=== PATIENT | female | born 1945 ===

== ENCOUNTER 2018-10-21 13:37 | Inpatient (IN) | payer MEDICARE ==
[2018-10-21] VITALS (10 sets, daily range): BP systolic 86–126; BP diastolic 49–76; PULSE 16–123; TEMP 97.4–98.6
[~2018-10-21] VITALS: Ht 167.6 cm; Wt 64.0 kg
[2018-10-21] MEDS ORDERED: MULTIPLE VITAMI1 CAP PO (16:53)
[2018-10-21] MEDS ORDERED: MIRALAX PA17 GM/Dose PO (16:54)
[2018-10-21 17:49] LABS: COLLECTION METHOD CATHETER
[2018-10-21 17:59] LABS: MUCOUS Present /lpf; PH 6 (5-8); SQUAMOUS EPITHELIAL 0-2 /hpf; URINE APPEARANCE Clear; URINE BACTERIA None Seen /hpf; URINE BILIRUBIN Negative (NEGATIVE); URINE BLOOD 1+ (NEGATIVE); URINE COLOR Yellow; URINE GLUCOSE Negative (NEGATIVE); URINE KETONE 2+ (NEGATIVE); URINE LEUKOCYTE ESTERASE 1+ (NEGATIVE); URINE NITRATE Negative (NEGATIVE); URINE PROTEIN(semi-quant) Negative (NEGATIVE); URINE UROBILINOGEN Negative (NEGATIVE)
[2018-10-21 18:01] LABS: INR 1.2 (0.8-3.0)
--- NOTE | 2018-10-21 20:45 | NUR ---
Patient up to room by bed from OR. Alert and oriented x3. Shift assessment complete. Grandson at bedside. Right leg CMS intact. Guevara to dependent drainage with clear kevin urine present. Denies pain at this time. Gauze dressing x2 to right hip CDI. x1 site with Steristrips CDI. Tedhose and SCDs to BLE. Denies further needs at this time.
[2018-10-22] VITALS (8 sets, daily range): BP systolic 89–120; BP diastolic 47–59; PULSE 70–83; TEMP 98.1–98.4
--- NOTE | 2018-10-22 00:05 | NUR ---
Contacted Ludmila BEASLEY, Patients BP in low 90's systolic. Fluid bolus ordered. Will continue to monitor.
[2018-10-22 06:04] LABS: HEMATOCRIT 23.7 % (37.0-47.0); HEMOGLOBIN 7.7 g/dl (12.5-16.0)
--- NOTE | 2018-10-22 06:38 | NUR ---
Patient has rested well through the night. Minimal needs. Grandson remains at bedside. IV fluids infusing to right AC. Denies pain at this time. Denies further needs at this time. Will report off to day shift.
--- NOTE | 2018-10-22 07:04 | NUR ---
report from Tatiana VICK.
--- NOTE | 2018-10-22 08:54 | NUR ---
PT SITTING UP IN BED EATING AND DRINKING. PT DENIES PAIN AND NO N/V. DRESSINGS TO RIGHT HIP CDI. FAMILY AT BEDSIDE.
--- NOTE | 2018-10-22 09:23 | NUR ---
OT INTO WORK WITH PT THIS AM. PT HAS HAD SOME OOZING FROM MIDDLE INCISION THAT HAD A BANDAID OVER SITE. CLEANED AREA AND PLACED GAUZE AND TEGADERM OVER INCISION.
--- NOTE | 2018-10-22 10:28 | NUR ---
SW met with the patient to discuss discharge plan. The patient lives in [place] with her , Silverio. She reports independence with ADLs and does not use any DME. The patient's PCP is Dr. Wilfredo Can and she receives her medications at [facility] in [place]. She reports no difficulties obtaining her meds. The patient does not have advanced directives, but she states that she does have the forms at home. The patient plans to return home with her upon discharge. PT/OT have been ordered. SW to continue to follow.
--- NOTE | 2018-10-22 20:00 | NUR ---
Patient in bed resting; Alert and oriented x3. Shift assessment complete. Patient up to restroom, with walker, steady gait. Middle incision on thigh bleeding, redressed with gauze and tegaderm once back in bed. Other two incison remain CDI. Ecchymosis noted to lateral thigh. Patient denies pain. IVF infusing to right AC. Kevin hose and SCDs to bilateral lower extremities. Denies futher needs at this time.
[2018-10-23] VITALS (9 sets, daily range): BP systolic 94–116; BP diastolic 36–68; PULSE 69–90; TEMP 97.4–99.2
--- NOTE | 2018-10-23 05:54 | NUR ---
Patient has rested well through the night. Minimal needs. Has been up to restroom, x1 assist, steady gait. Kevin hose and SCDs maintained to BLE. Minimal drainage to middle incision on thigh. Other two incisions remain CDI. Continues to deny pain. Guevara maintained to dependent drainge with clear yellow urine. Get further needs at this time. Will report off to day shift.
--- NOTE | 2018-10-23 07:00 | NUR ---
Report received from NAVA Simpson. Pt resting in bed, ordered breakfast, denies needs, will continue to monitor.
[2018-10-23 07:52] LABS: BASO % 0.2 % (0.0-2.0); GRAN # 8.9 (1.4-6.5); GRAN % 70.2 % (42.2-75.2); LYMPH # 2.5 (1.2-3.4); LYMPH % 19.9 % (20.0-51.0); MEAN CELL VOLUME 92 fl (80.0-100.0); MEAN CORPUSCULAR HGB CONC 33 g/dl (33.0-37.0); MEAN PLATELET VOLUME 10.6 fl (7.4-10.4); MONO # 1.2 (0.1-0.6); MONO % 9.2 % (1.7-9.3); PLATELET COUNT 148 K/mm3 (130-400); RED BLOOD COUNT 2.17 M/mm3 (4.10-5.30); REDCELL DISTRIBUTION WIDTH-CV 13.9 % (11.5-14.5)
[2018-10-23 08:01] LABS: CALCIUM 7.8 mg/dL (8.4-10.2); CREATININE, serum 0.7 mg/dL (0.52-1.25)
[2018-10-23 08:04] LABS: HEMATOCRIT 19.9 % (37.0-47.0); HEMOGLOBIN 6.5 g/dl (12.5-16.0); MEAN CORPUSCULAR HEMOGLOBIN 30 pg (27.0-31.0)
--- NOTE | 2018-10-23 09:00 | NUR ---
Assessment charted. R hip mid surgical site is draining SS drainage, will replace dressing shortly. Guevara catheter dc'd, malina care provided. Pt tolerated well. Ambulates well with walker. Discussed labs, and need for blood transfusion. Pt agreeable. Pain is 5/10 when ambulating, PRN pain meds given per request. INT to R A/C. In recliner with TEDS, SCDs, ice and IS. Will continue to monitor.
--- NOTE | 2018-10-23 10:50 | NUR ---
1 unit of PRBCs started at this time. Verified with 2nd nurse, educated on s/sx of a transfusion reaction. Pt resting in bed, vss, rate at 60 ml/hr. Denies needs, will continue to monitor.
--- NOTE | 2018-10-23 11:05 | NUR ---
Remained with pt for first 15 minutes, no s/sx of a transfusion reaction. Pt tolerating well, VSS, increased rate to 125 ml/hr. Will continue to monitor.
--- NOTE | 2018-10-23 12:41 | NUR ---
Called into room, jb that R A/C IV site was leaking. Tried flushing but leaking continued. Started new IV site to RW, 20 G. Pt tolerated well. Blood restarted and infusing, only off for 15 minutes. Will continue to mnitor.
[2018-10-23 14:26] LABS: HEMATOCRIT 22.1 % (37.0-47.0); HEMOGLOBIN 7.4 g/dl (12.5-16.0)
--- NOTE | 2018-10-23 17:54 | NUR ---
Pt has done well today. Up to shower. Replaced dressing to R hip mid surgical site after shower d/t saturation. checked now and no drainage noted. Bandaid on distal surgical site and proximal site remains LICENSED OPTICAL DISPENSER and no drainage. INT to RF. Pt doing well, taking PO well. Resting in bed, will give bedside shift report to nightshift nurse who will resume care.
[2018-10-24 03:08] VITALS: BP 121/69; PULSE 76; TEMP 98.4
[2018-10-24 07:54] LABS: BASO % 0.2 % (0.0-2.0); EOS % 0.2 % (0-4.0); GRAN # 7.1 (1.4-6.5); LYMPH # 2.3 (1.2-3.4); LYMPH % 21.7 % (20.0-51.0); MEAN CELL VOLUME 91 fl (80.0-100.0); MEAN CORPUSCULAR HGB CONC 33 g/dl (33.0-37.0); MEAN PLATELET VOLUME 10.3 fl (7.4-10.4); MONO % 9.8 % (1.7-9.3); PLATELET COUNT 129 K/mm3 (130-400); RED BLOOD COUNT 2.42 M/mm3 (4.10-5.30); REDCELL DISTRIBUTION WIDTH-CV 14.4 % (11.5-14.5)
[2018-10-24 07:57] LABS: HEMOGLOBIN 7.2 g/dl (12.5-16.0); MEAN CORPUSCULAR HEMOGLOBIN 30 pg (27.0-31.0)
[2018-10-24 08:00] LABS: CALCIUM 7.6 mg/dL (8.4-10.2); CREATININE, serum 0.58 mg/dL (0.52-1.25); MAGNESIUM 2.2 mg/dL (1.6-2.3); POTASSIUM 3.6 mmol/L (3.4-5.0)
[2018-10-24 09:00] VITALS: BP 120/56; PULSE 76; TEMP 98
[2018-10-24 11:18] VITALS: BP 121/53; PULSE 77; TEMP 98.1
[2018-10-24 15:10] VITALS: BP 145/61; PULSE 74; TEMP 99
--- NOTE | 2018-10-24 18:00 | NUR ---
No c/o incisional pain this shift. Ambulated in room and halls with walker. No dizziness. Mild nausea. Moderate drainage on right hip dressing.
[2018-10-24 19:17] VITALS: BP 126/54; PULSE 83; TEMP 99
[2018-10-25 05:02] VITALS: BP 101/54; PULSE 78; TEMP 98.7
--- NOTE | 2018-10-25 05:43 | NUR ---
PT IN BED. NO c/o N/V. PT TOOK 1 NORCO DURING THE NIGHT FOR RT HIP DISCOMFORT. GAIT STEADY USING WALKER.
[2018-10-25 06:53] LABS: HEMATOCRIT 24.9 % (37.0-47.0)
[2018-10-25] MEDS ORDERED: ASPI325T6 PO (07:32)
[2018-10-25] MEDS ORDERED: NORCO 325 MG-7.1 TAB PO (07:33)
[2018-10-25 07:42] VITALS: BP 123/64; PULSE 73; TEMP 98.2
--- NOTE | 2018-10-25 08:00 | NUR ---
PATIENT IS A&O. VSS. DENIES PAIN. RIGHT HIP DRESSING IS CD&I WITH GAUZE & TEGA. TEDS TO BLE. POSITIVE PEDAL PULSES. PATIENT EAT/DRINK/VOIDING SUFFICENT AMOUNTS. HEAD TO TOE ASSESSMENT WNL. AM MEDS GIVEN. BREAKFAST TRAY AT BEDSIDE. CALL LIGHT IN REACH.
--- NOTE | 2018-10-25 09:15 | NUR ---
HOSPITALIST ROUNDING. SEE DISCHARGE ORDERS.
[2018-10-25] MEDS ORDERED: FERROUS SU325 MG/TAB PO (09:18)
--- NOTE | 2018-10-25 10:08 | NUR ---
MADDY met with patient and presented Medicare approved home health agencies. She chose [facility] [employer] P# [phone] F# [phone]. MADDY called and faxed referral. Patient will be receiving HH PT and SN through them. MADDY presented IM and verbally discussed the contents. Patient is agreeable and signed the form. Original placed in the chart.
[2018-10-25 11:13] VITALS: BP 140/57; PULSE 80; TEMP 97.9
--- NOTE | 2018-10-25 11:35 | NUR ---
[facility] family talked with [facility] who said they could take this afternoon. MADDY called [facility] who said they may be able to accept. [facility] called and said dr gonsalez will accept he just needs a doc to doc at [phone]. [facility]. MADDY met with patient to present IM and verbally discussed the contents. Patient was agreeable and signed the form. Original placed in chart.
--- NOTE | 2018-10-25 13:00 | NUR ---
PATIENT DISCHARGING VIA WHEELCHAIR TO PERSONAL VEHICLE WITH GRANDSON. GAVE DISCHARGE INSTRUCTIONS, PRESCRIPTION & FOLLOW UP APTS. DC'D IV, COVERED WITH BANDAID. PATIENT DRESSED AND PACKED. PATIENT DISCHARGED.
== END 2018-10-25 13:00 | disposition home health service (06) | DRG 481 ==
LOC: SURG 16:43
PROVIDERS: Internal Medicine; Nurse Practitioner Family; Orthopaedic Surgery; Physician Assistant; ADMIT Hospitalist
PROC: 0QS636Z Reposition Right Upper Femur with Intramedullary Internal Fixation Device, Percutaneous Approach (ICD-10-PCS; principal; 2018-10-21 18:00)
DX: S72.141A Displaced intertrochanteric fracture of right femur, initial encounter for closed fracture (principal); D62 Acute posthemorrhagic anemia; W00.2XXA Other fall from one level to another due to ice and snow, initial encounter; Z87.891 Personal history of nicotine dependence
CPT/HCPCS: 99222-AI; 99232-AI; 99233-AI; 99239; A9284; C1713; J0690; J1100; J1885; J2250; J2370; J2405; J2704; J3010; J7030; P9016